=== PATIENT | male | born 1940 | race Caucasian/White ===

== ENCOUNTER 2022-04-23 12:58 | Emergency (ER) | payer MEDICARE, OTHER ==
[~2022-04-23] VITALS: Ht 187.9 cm; Wt 124.7 kg
--- NOTE | 2022-04-23 13:10 | ED Hip Pain/Injury ---
General Chief Complaint: Hip/Pelvic Problems Stated Complaint: RIGHT HIP PAIN Source: patient Exam Limitations: no limitations (RODERICK RAHMAN MD) History of Present Illness Date Seen by Provider: Apr 23, 2022 Time Seen by Provider: 13:00 Initial Comments Patient is a 81-year-old male who presents to the emergency department today with a chief complaint of right hip pain, he believes he dislocated it and it may have reduced on its own. He was sitting at a local restaurant having some drinks with friends in a chair when he leaned over he felt his right hip pop and then when he sat up he thought he felt it pop back into place. He continues to have mild discomfort. He denies numbness tingling or weakness to the extremity. He did not fall or have any direct trauma. He has had prior hip replacement 5 years ago at [facility]. No recent illnesses. He did have a couple of bloody Kortney's and a few beers at lunch today. Vital signs are stable. He is in no acute distress. Neurovascularly intact to the right lower extremity. All other review of systems reviewed and negative except as stated Timing/Duration: just prior to arrival Severity: mild Location: hip (R) Modifying Factors: Worse With Movement Associated Symptoms: denies symptoms (RODERICK RAHMAN MD) Allergies and Home Medications Allergies Coded Allergies: No Known Drug Allergies (Unverified , 04/23/22) Patient Home Medication List Home Medication List Reviewed: Yes (RODERICK RAHMAN MD) Review of Systems Constitutional: see HPI EENTM: no symptoms reported Respiratory: no symptoms reported Cardiovascular: no symptoms reported Gastrointestinal: no symptoms reported Genitourinary: no symptoms reported Musculoskeletal: joint pain (right hip) Skin: no symptoms reported (RODERICK RAHMAN MD) All Other Systems Reviewed Negative Unless Noted: Yes (RODERICK RAHMAN MD) Physical Exam Vital Signs Vital Signs - First Documented 04/23/22 12:58 Temp 36.9 Pulse 71 Resp 16 B/P (MAP) 146/96 (113) Pulse Ox 96 O2 Delivery Room Air (JANAY CONNORS APRN) Vital Signs Capillary Refill : (RODERICK RAHMAN MD) Height, Weight, BMI Height: '" Weight: lbs. oz. kg; BMI Method: General Appearance: No Apparent Distress, WD/WN HEENT: PERRL/EOMI Neck: Normal Inspection Cardiovascular: Regular Rate, Rhythm, Normal Peripheral Pulses Respiratory: Lungs Clear, Normal Breath Sounds, No Accessory Muscle Use, No Respiratory Distress Gastrointestinal: Non Tender, Soft Extremity: Normal Capillary Refill, Normal Inspection, Other (decreased ROM RLE; NVI; RLE is shortened - not rotated) Neurologic/Psychiatric: Alert, Oriented x3, No Motor/Sensory Deficits, Normal Mood/Affect, mental health specialist II-XII Norm as Tested Skin: Normal Color, Warm/Dry (RODERICK RAHMAN MD) Procedures/Interventions Procedure: R hip reduction Patient Education: Explained Benefits, Explained Risks, Pt. Ack. Understanding Agreement on procedure with pt: Yes Breath Sounds per Auscultation: Clear Heart Sounds per Auscultation: Regular Airway Exam: Mouth opens >2 fingers, Neck Full Range of Motion, Visulation of Uvula Sedation Adminstration Time: 14:36 Total Time spent in CS 15 hip was successfully reduced Re-examination Time: 14:55 Re-examination awake, alert, answers questions appropriately (JANAY CONNORS APRN) Splinting and Joint Reduction : Pre-Proc Neuro Vasc Exam: normal Post-Proc Neuro Vasc Exam: normal Joint Reduction Site: hip (R) Reduction Attempts: 1 Pre-Procedure NV Exam: Yes post joint reduction film: joint reduced Progress reduction was achieved with the Captain Negrete technique; constant traction was applied for 15-20 seconds after which a clunk was felt and the leg length discrepancy was resolved; able to passively internally/externally rotate the hip Immobilizers: Flexion Limit Knee Long (JANAY CONNORS APRN) Progress/Results/Core Measures Results/Orders My Orders Orders - JANAY CONNORS APRN Etomidate Injection (Amidate Injection) (04/23/22 13:30) Ns Iv 1000 Ml (Sodium Chloride 0.9%) (04/23/22 14:45) Hip, Right (Single View) (04/23/22 14:39) (JANAY CONNORS APRN) Medications Given in ED Current Medications Medications Dose Ordered Sig/Dorothy Route Start Time Stop Time Status Last Admin Dose Admin Etomidate 37 mg ONCE ONCE IV 04/23/22 13:30 04/23/22 13:34 DC 04/23/22 14:38 20 MG (JANAY CONNORS APRN) Vital Signs/I&O 04/23/22 04/23/22 12:58 14:35 Temp 36.9 Pulse 71 Resp 16 B/P (MAP) 146/96 (113) Pulse Ox 96 O2 Delivery Room Air Room Air (JANAY CONNORS APRN) Diagnostic Imaging Diagonstic Imaging: Xray Comments [facility], [place] NAME: GAYE TAMAYO [facility] REC#: [id number] PT STATUS: REG ER : 1940 PHYSICIAN: RODERICK RAHMAN MD ADMIT DATE: 04/23/22/ER Signed Date of Exam:04/23/22 PELVIS WITH RIGHT HIP 2-3VIEWS INDICATION: Right hip pain. FINDINGS: AP view pelvis and two views of the right hip show dislocation of the right hip. Patient has had bilateral hip arthroplasties. There is no acute fracture seen. IMPRESSION: Right hip dislocation. Dictated by: Dictated on workstation # [id number] Dict: 04/23/22 1335 Trans: 04/23/22 1452 [id number] Interpreted by: ELEAZAR TANNER MD Electronically signed by: ELEAZAR TANNER MD 04/23/22 1456 Diagonstic Imaging: Xray Comments 1v right hip post reduction : hip is reduced (RODERICK RAHMAN MD) Departure Impression Primary Impression: Dislocation of hip joint prosthesis Qualified Codes: T84.029A - Dislocation of unspecified internal joint prosthesis, initial encounter; Z96.649 - Presence of unspecified artificial hip joint Disposition: 01 HOME, SELF-CARE Condition: Improved Departure-Patient Inst. Decision time for Depature: 15:00 (RODERICK RAHMAN MD) Patient Instructions: Hip Dislocation (DC), Procedural Sedation, Adult ED Add. Discharge Instructions: Please wear the immobilizer for the next week to help with the stability of your hip joint. Call your orthopedic surgeon at for a follow-up appointment. You can take [id number] Tylenol or ibuprofen as needed for discomfort. Return to the emergency department for any new, concerning or emergent complaints. RODERICK RAHMAN MD Apr 23, 2022 13:10 JANAY CONNORS APRN Apr 23, 2022 15:39
[2022-04-23] MEDS ORDERED: ETOMIDATE IV SOLN 20 MG/10 ML VIAL IV ONE (13:30)
--- NOTE | 2022-04-23 13:37 | Diagnostic Imaging Report ---
INDICATION: Right hip pain. FINDINGS: AP view pelvis and two views of the right hip show dislocation of the right hip. Patient has had bilateral hip arthroplasties. There is no acute fracture seen. IMPRESSION: Right hip dislocation. Dictated by: Dictated on workstation # [id number]
[2022-04-23] MEDS ORDERED: NS IV 1000 ML 1,000 ML ONE (14:32)
[2022-04-23] MEDS ORDERED: NS IV 1000 ML 1,000 ML IV SCH (14:45)
--- NOTE | 2022-04-23 15:15 | Diagnostic Imaging Report ---
HISTORY: Post reduction of right hip dislocation. TECHNIQUE: Frontal view of the right hip. COMPARISON: 04/23/2022. FINDINGS: There is a right total hip arthroplasty. Alignment appears normal on this frontal view. No loosening is seen. No acute fracture is seen. IMPRESSION: Right hip arthroplasty with normal alignment post reduction. Dictated by: Dictated on workstation # [id number]
[2022-04-23 15:51] VITALS: BP 160/100
== END 2022-04-23 15:51 | disposition home or self-care (01) ==
LOC: ER 12:59
DX: T84.020A Dislocation of internal right hip prosthesis, initial encounter (principal); Z96.649 Presence of unspecified artificial hip joint; X50.1XXA Overexertion from prolonged static or awkward postures, initial encounter; Y92.511 Restaurant or cafe as the place of occurrence of the external cause
CPT/HCPCS: 27252; 73501; 93041; 96361; 96374